=== PATIENT | female | born 1950 | race Caucasian/White ===

== ENCOUNTER 2016-05-25 08:49 | Outpatient (CLI) | payer MEDICARE, OTHER ==
[~2016-05-25] VITALS: Ht 154.9 cm; Wt 52.3 kg
[~2016-05-25 08:49] MED LIST: *BLDWK1; *BLDWK2; *BLDWK6; *BLDWK7; *CXR; /ADVA50050; /ADVA50050 IN; /ADVA50050 INH; /AMLO25TA OR; /HALO5TAB OR; /MOXI40TA OR; /NITR4TASL SL; /PANT40TA; /PANT40TA OR; /PANT40TA PO; /SUCR1TA OR; /WARF25TA OR; /WARF5TA; /WARF5TA OR; ACET50TA PO; ACET65TA OR; ACET65TA PO; ADV250INH INH; ADVAIR250 INHALATION; ALBU83IN INH; ALBUTEROL INH; ALLE25CA PO; ALLO100T PO; ALLO10TA PO; AMLO10TA OR; AMLO10TAB OR; AMO250 PO; ASPEC81 PO; ASPI325T OR; ASPI325T5 PO; ASPI81TA4 PO; ASPI81TA51 PO; ASPI81TA83; ASPI81TA83 OR; ASPI81TA85 PO; ATENOL25; ATENOL25 PO; ATOR1TAB18 PO; ATROVENT0.02% INH; AVAPRO150; AVAPRO150 PO; AVAPRO75 PO; AVEL1TAB PO; B-12100010 PO; BACITAB3 PO; BENA25TA4 PO; BYST10TA PO; BYST10TA2 PO; BYSTOLIC PO; Bystolic PO; CALC0.25 PO; CALC0.5C OR; CALC1CAP31 PO; CELEBRE100 PO; CELEBRE200; CLAR10CA3 PO; COLA100C2 OR; COMBIVENT; COUM10TA; COUM1TAB17 PO; COUM7.5T PO; COUMADIN; COUMADIN PO; COUMADIN5 PO; CYTOTEC PO; DICL13PA TD; DIOVAN80 PO; DRISDOL PO; ENOX40SY; FERR325T; FERR325T OR; FERR325T PO; FERR325T3 PO; FERR83TA2 PO; FERROUS325 PO; FLAG250T PO; FLAG500T PO; FLON0.054; FOLI1TAB; FOLI1TAB OR; FOLI1TAB PO; FOLI1TAB2 PO; FOLI1TAB86 PO; FOLITAB11; FURO20TA2 PO; FURO40TA2 PO; HYDR25TA7 OR; IMDU30TA PO; IMDU60TA OR; IMDU60TA PO; IMDUR30 PO; ISOS30BRAN; ISOS60TA2 OR; K-TA10TA; K-TA10TA PO; KLOR10TA21 PO; KLOR1TAB69 PO; KLORCON10 PO; LASI20TA PO; LASI40TA; LASI40TA OR; LASI40TA PO; LASI80TA; LASIX20 PO; LASIX40; LASIX40 PO; LEVA500T PO; LIPI80TA PO; LIPITOR80; LIPITOR80 PO; LOSA25TA8 PO; MAGN500T2 OR; MAGN500T2 PO; MAVIK; MAVIK2 PO; MIRALEX PO; MOM30SS PO; MULTIVIT; MYLASS PO; NITR0.4D6 TD; NITR0.4S; NITR0.4S SL; NITR4TASL SL; NITROSTAT4 SL; NORCO; NORCOTAB PO; NORV5TAB; NORV5TAB PO; NORVASC5 PO; PAIN325T OR; PANT40TA2 PO; PERC5TAB8 OR; POTA75TA OR; PRAV80TA OR; PRAV80TA2 PO; PRED10TA2 OR; PRED20TA PO; PRED5TAB PO; PREV15CA OR; PROCARDI; PROCARDI PO; PROP20TA2 OR; PROTONIX40 PO; SENO8.6T5 OR; SPIR50TA2 OR; THERGRAN OR; TUMS500C PO; TYLE325T5 PO; TYLE500T78 PO; VALS80CA; VALS80CA PO; VENTAER INH; VITA-113 PO; VITA100072 PO; VITA250L PO; VITA500046 PO; VITA500C10 PO; VITA500C14 PO; VITAMIN B 12; WARF7.5T17 PO; WELCHOL; XANAX0.25 PO; ZEBE5TAB; ZEBE5TAB PO; ZEBETA5; ZEBETA5 PO; ZETI10TA; ZETI10TA OR; ZETI10TA PO; ZETI10TA21 PO; ZETIA PO; ZOCO80TA; ZOCO80TA PO; ZOCOR80 PO; ZYPR20TA OR; [UNRECOGNIZED DRUG - CODE]; [UNRECOGNIZED DRUG - CODE] IJ; [UNRECOGNIZED DRUG - OTHER]; [UNRECOGNIZED DRUG - OTHER] SC; [UNRECOGNIZED DRUG - REMARK]; [UNRECOGNIZED DRUG - REMARK]; mucinex PO
[2016-05-25] MEDS ORDERED: SODIUM CHLORIDE 0.9% INJ 10 ML SYR IV SCH (09:00)
[2016-05-25 09:29] LABS: MEAN CORPUSCULAR HEMOGLOBIN 27.1 pg (27.0-33.0); MEAN CORPUSCULAR HGB CONC 29.3 g/dl (32.0-36.5); MEAN CORPUSCULAR VOLUME 92.6 fl (80.0-96.0); RED CELL DISTRIBUTION WIDTH 16.1 % (11.5-14.5); WHITE BLOOD COUNT 3.9 K/mm3 (4.0-10.0)
[2016-05-25 09:34] LABS: INR 2.54
== END 2016-05-25 09:15 | disposition home or self-care (01) ==
LOC: M INFU 08:49
PROVIDERS: ATTEND Family Medicine
DX: D50.9 Iron deficiency anemia, unspecified (principal); Z79.01 Long term (current) use of anticoagulants; Z79.899 Other long term (current) drug therapy; Z88.8 Allergy status to other drugs, medicaments and biological substances

== ENCOUNTER → 2016-05-26 | Outpatient (REF) | payer MEDICARE, OTHER | LOC: M LAB REF 12:57 | PROVIDERS: ATTEND Internal Medicine Nephrology | DX: N39.0 Urinary tract infection, site not specified (principal) ==

== ENCOUNTER 2016-06-01 08:15 | Outpatient (CLI) | payer MEDICARE, OTHER ==
[2016-06-01 08:46] LABS: INR 2.47
[2016-06-01] MEDS ORDERED: SODIUM CHLORIDE 0.9% INJ 10 ML SYR IV SCH (09:00)
[2016-06-01 09:06] LABS: MEAN CORPUSCULAR HEMOGLOBIN 26.4 pg (27.0-33.0); MEAN CORPUSCULAR HGB CONC 28.5 g/dl (32.0-36.5); MEAN CORPUSCULAR VOLUME 92.5 fl (80.0-96.0); RED CELL DISTRIBUTION WIDTH 15.8 % (11.5-14.5); WHITE BLOOD COUNT 3.4 K/mm3 (4.0-10.0)
== END 2016-06-01 08:30 | disposition home or self-care (01) ==
LOC: M INFU 08:15
PROVIDERS: ATTEND Family Medicine
DX: D50.9 Iron deficiency anemia, unspecified (principal); Z79.01 Long term (current) use of anticoagulants; Z79.899 Other long term (current) drug therapy; Z88.8 Allergy status to other drugs, medicaments and biological substances

== ENCOUNTER 2016-06-02 07:43 | Outpatient (CLI) | payer MEDICARE, OTHER ==
[~2016-06-02] VITALS: Ht 144.8 cm; Wt 52.3 kg
[~2016-06-02 07:43] MED LIST changes: +ACETAMINOPHEN TAB 650MG DOSE (2X325MG) PO SCH; +diphenhydrAMINE 25 MG CAP PO SCH
[2016-06-02] MEDS ORDERED: FUROSEMIDE 40 MG/4 ML VIAL (J1940) IV SCH (08:00)
[2016-06-02] MEDS ORDERED: SODIUM CHLORIDE 0.9% INJ 10 ML SYR IV SCH (09:00)
== END 2016-06-02 12:30 | disposition home or self-care (01) ==
LOC: M INFU 07:43
PROVIDERS: ATTEND Family Medicine
DX: D50.9 Iron deficiency anemia, unspecified (principal); Z79.899 Other long term (current) drug therapy; Z79.51 Long term (current) use of inhaled steroids; Z88.8 Allergy status to other drugs, medicaments and biological substances; Z79.01 Long term (current) use of anticoagulants
CPT/HCPCS: 36430; J1940; P9038

== ENCOUNTER 2016-06-10 09:44 | Emergency (ER) | payer MEDICARE, OTHER ==
[~2016-06-10 09:44] MED LIST changes: -ACETAMINOPHEN TAB 650MG DOSE (2X325MG) PO SCH; -diphenhydrAMINE 25 MG CAP PO SCH
[2016-06-10] MEDS ORDERED: SODIUM BICARBONATE 8.4% INJ 50 ML SYRINGE ONE (10:13)
[2016-06-10] MEDS ORDERED: EPINEPHrine 1MG/10ML SYRINGE 1.5IN ONE (10:13)
== END 2016-06-10 13:00 | disposition expired ==
LOC: EDBD 09:44 → M ED 10:12
DX: I46.9 Cardiac arrest, cause unspecified (principal); I10 Essential (primary) hypertension; E78.5 Hyperlipidemia, unspecified; J44.9 Chronic obstructive pulmonary disease, unspecified; I25.10 Atherosclerotic heart disease of native coronary artery without angina pectoris; N28.9 Disorder of kidney and ureter, unspecified; D59.4 Other nonautoimmune hemolytic anemias; Z79.899 Other long term (current) drug therapy; Z79.01 Long term (current) use of anticoagulants; Z79.51 Long term (current) use of inhaled steroids; Z95.5 Presence of coronary angioplasty implant and graft; Z88.8 Allergy status to other drugs, medicaments and biological substances